=== PATIENT | male | born 1970 | race Caucasian/White ===

== ENCOUNTER 2016-09-07 22:06 | Emergency (ER) | payer BC, MEDICAID ==
[~2016-09-07] VITALS: Ht 172.7 cm; Wt 91.6 kg
[2016-09-07] MEDS ORDERED: ALBUTEROL FS 2.5 MG/3 ML VIAL.NEB NEB ONE (22:30)
[2016-09-07] MEDS ORDERED: ALBUTEROL FS 2.5 MG/3 ML VIAL.NEB ONE (22:57)
[2016-09-07] MEDS ORDERED: predniSONE 20 MG TABLET PO ONE (23:00)
[2016-09-07] MEDS ORDERED: predniSONE 20 MG TABLET ONE (23:19)
[2016-09-07 23:33] VITALS: BP 127/63
== END 2016-09-07 23:34 | disposition home or self-care (01) ==
LOC: ER 22:06
DX: J40 Bronchitis, not specified as acute or chronic (principal); I10 Essential (primary) hypertension
CPT/HCPCS: 71010; 94640; 99283; A4606; J7512; Z7610

== ENCOUNTER 2016-09-08 01:11 | Emergency (ER) | payer BC, MEDICAID ==
[~2016-09-08] VITALS: Ht 172.7 cm; Wt 91.6 kg
[2016-09-08 01:12] VITALS: BP 138/88
[2016-09-08] MEDS ORDERED: LORAZEPAM 1 MG TABLET ONE (01:51)
[2016-09-08] MEDS ORDERED: GUAIFENESIN/D-METHORPHAN HB 5 ML UDC ONE (01:51)
[2016-09-08] MEDS ORDERED: LORAZEPAM 1 MG TABLET PO ONE (02:00)
[2016-09-08] MEDS ORDERED: GUAIFENESIN/D-METHORPHAN HB 5 ML UDC PO ONE (02:00)
== END 2016-09-08 01:57 | disposition home or self-care (01) ==
LOC: ER 01:12
DX: J40 Bronchitis, not specified as acute or chronic (principal); G47.00 Insomnia, unspecified; R09.89 Other specified symptoms and signs involving the circulatory and respiratory systems; I10 Essential (primary) hypertension; F17.200 Nicotine dependence, unspecified, uncomplicated
CPT/HCPCS: 99283; A4606; Z7610